=== PATIENT | female | born 1965 | race Caucasian/White ===

== ENCOUNTER → 2017-09-27 15:55 | Outpatient (CLI) | payer OTHER, SELFPAY ==
[2017-09-27 16:59] LABS: Estradiol 29.4 pg/mL; Free T3 1.9 pg/mL (2.18-3.98); Thyroid Stim Hormone (TSH) 0.36 uIU/mL (0.358-3.74)
== END ==
PROVIDERS: Family Provider Internal Medicine; PCP Internal Medicine; Visit Provider Specialist
DX: E02 Subclinical iodine-deficiency hypothyroidism (principal); N95.1 Menopausal and female climacteric states
CPT/HCPCS: 36415; 82670; 84144; 84403; 84443; 84481

== ENCOUNTER → 2017-12-30 06:46 | Outpatient (CLI) | payer OTHER, SELFPAY ==
--- NOTE | 2017-12-30 06:49 | CT_ITS ---
STUDY: CT MAXILLOFACIAL SINUSES REASON FOR EXAM: Female, 52 years old. Sinusitis RADIATION DOSAGE (If Supplied By Facility): CTDIvol = ( 33.06 ) mGy, DLP = ( 871.04 ) mGycm TECHNIQUE: The patient was scanned in a multi detector CT scanner. High resolution axial imaging was performed without the administration of intravenous contrast material. Coronal images were reconstructed. Streak artifact caused by dental hardware. Individualized dose optimization techniques were used for this CT. COMPARISON: None. FINDINGS: FRONTAL SINUSES: Normal aeration, without mucosal inflammatory disease. ETHMOIDAL SINUSES: Normal aeration, without mucosal inflammatory disease. MAXILLARY SINUSES: Normal aeration, without mucosal inflammatory disease. SPHENOIDAL SINUSES: Normal aeration, without mucosal inflammatory disease. There is patency of the bilateral maxillary infundibuli with normal uncinate processes, ethmoid bullae, and hiatus semilunaris. Normal bilateral middle turbinates. Normal bilateral inferior turbinates. There is a left sided nasal septal deviation with a left sided nasal septal spur. There is patency of the bilateral nasal airways. The visualized osseous structures are normal. The visualized bilateral orbital contents are normal. The mandible and bilateral temporomandibular joints are intact. The bilateral mastoid air cells are clear. CT/Sinus/Facial Bone IMPRESSION: No evidence of acute or chronic sinusitis or mastoiditis. Left septal deviation with a left sided nasal septal spur. Electronically Signed: Bertha Littlejohn MD at 6:34 EDT , Service support ,
== END ==
PROVIDERS: Family Provider Internal Medicine; PCP Internal Medicine; Visit Provider Otolaryngology
DX: J32.9 Chronic sinusitis, unspecified (principal); J34.2 Deviated nasal septum; J34.89 Other specified disorders of nose and nasal sinuses
CPT/HCPCS: 70486

== ENCOUNTER → 2018-02-27 16:48 | Outpatient (CLI) | payer OTHER, SELFPAY ==
[2015-05-28 10:21] VITALS: BMI 21.4
[2018-02-27 17:30] LABS: Color, Urine Yellow (Yellow); Glucose, Dipstick Normal (Normal); Ketone-Dipstick Negative (Negative); Leukocyte Esterase-Dipstick 500 /ul (Negative); Nitrite-Dipstick Negative (Negative); Occult Blood-Urine 10 /ul (Negative); Protein-Dipstick Negative (Negative); Specific Gravity, Urine 1.005 (1.002-1.030); Urine Bilirubin Dipstick Negative (Negative); Urine Clarity Sl. Cloudy (Clear); Urine Urobilinogen Normal (Normal)
[2018-02-27 17:57] LABS: Absolute Lymphocyte Count 2.48 X10^3/ul (0.83-4.51); Basophil# 0.03 X10^3/uL; Basophil% 0.4 % (0-1); Eosinophil# 0.19 X10^3/uL; Eosinophils% 2.6 % (0-5); Hematocrit 45.9 % (37-47); Hemoglobin 15.4 g/dl (12.0-15.0); Lymphocyte # 2.48 X10^3/ul (4.0); Lymphocyte % 33.9 % (19-41); Mean Corp Hgb Conc 33.6 g/gl (32-36); Mean Corpuscular Hgb 34.1 pg (27.0-32.0); Mean Corpuscular Volume 101.8 fL (81-99); Mean Platelet Vol. 11.6 fl (6.2-12.0); Monocyte# 0.61 X10^3/uL; Monocyte% 8.3 % (0-10); Neutrophil % 54.7 % (47-70); Platelet Count 249 K/mm3 (150-450); RBC Distribution Width CV 12.5 % (11.6-14.6); Red Blood Count 4.51 M/mm3 (4.2-5.4); White Blood Count 7.3 K/mm3 (4.4-11.0)
[2018-02-27 17:58] LABS: POSITIVE COUNT NO; POSITIVE DIFFERENTIAL NO; POSITIVE MORPHOLOGY NO
[2018-02-27 18:02] LABS: ALB/GLOB Ratio 1.1 RATIO (0.9-2.4); AST(SGOT) 17 U/L (15-37); Alanine Aminotransfer ALT/SGPT 31 U/L (13-56); Albumin, Serum 4.1 g/dL (3.2-5.0); Alkaline Phosphatase 77 U/L (45-117); Anion Gap 5 (5-15); BUN 16 mg/dL (7-18); BUN/Creat Ratio 15.5 RATIO (10-20); Calcium,Total 8.9 mg/dL (8.5-10.1); Chloride 106 mmol/L (98-107); Creatinine, Serum 1.03 mg/dL (0.55-1.02); EST Glomerular Filtration Rate 60 mL/min (>60); Est Glom Filt Rate - Afr Amer 72 mL/min (>60); Free T3 2.5 pg/mL (2.18-3.98); Globulin 3.7 g/dL (2.2-4.2); Glucose 87 mg/dL (74-106); Protein, Total 7.8 g/dL (6.4-8.2); Sodium Level 138 mmol/L (136-145); T4 Free Direct 0.75 ng/dL (0.76-1.46); Thyroid Stim Hormone (TSH) 2.18 uIU/mL (0.358-3.74)
== END ==
PROVIDERS: Family Provider Internal Medicine; PCP Internal Medicine; Referring Provider Nurse Practitioner; Visit Provider Nurse Practitioner
DX: R00.2 Palpitations (principal); R74.8 Abnormal levels of other serum enzymes
CPT/HCPCS: 36415; 80053; 81002; 82248; 84439; 84443; 84481; 85025

== ENCOUNTER → 2018-03-03 06:47 | Outpatient (CLI) | payer OTHER, SELFPAY ==
--- NOTE | 2018-03-03 06:51 | CT_ITS ---
STUDY: CT BRAIN WITHOUT CONTRAST REASON FOR EXAM: Female, 52 years old. Headaches. RADIATION DOSAGE (If Supplied By Facility): CTDIvol = ( 44.99 ) mGy, DLP = ( 745.49 ) mGycm TECHNIQUE: Transaxial CT imaging of the brain was performed without administration of intravenous contrast material. Individualized dose optimization techniques were used for this CT. COMPARISON: Comparison is made with prior study dated May 28, 2015. FINDINGS: Normal soft tissue structures. Normal calvarium. Normal size ventricles and extra-axial spaces for the patient's age. Normal white matter tracts of the cerebral hemispheres. Normal basal ganglia and thalami. Normal brainstem. Normal cerebellum. There is no intracranial hemorrhage. There are no findings of an acute ischemic infarction. Minimal degree of mucosal thickening of the ethmoid sinuses. CT/Brain/Head without Contrast IMPRESSION: Normal unenhanced CT scan of the brain. Minimal degree of mucosal thickening of the ethmoid sinuses. Electronically Signed: Aki Cruz MD at 10:14 EST Tel [phone], Service support ,
== END ==
PROVIDERS: Family Provider Internal Medicine; PCP Internal Medicine; Referring Provider Nurse Practitioner; Visit Provider Nurse Practitioner
DX: R51 Headache (principal); R00.2 Palpitations
CPT/HCPCS: 70450

== ENCOUNTER → 2018-03-06 11:02 | Outpatient (CLI) | payer OTHER, SELFPAY ==
[2015-05-28 10:21] VITALS: BMI 21.4
--- NOTE | 2018-03-06 11:06 | ECHOD_ITS ---
Reason For Study: Palpitations Procedure This was a 2D Doppler, Color Flow transthoracic echocardiogram. Exam performed in department. Left Ventricle Normal LV size. Left ventricular systolic function is normal. The estimated ejection fraction is 55 %. Normal diastology for age. No regional wall motion abnormalities noted. Right Ventricle Normal RV size. Normal systolic function. Atria Normal left atrium. Normal right atrium. Mitral Valve Normal mitral valve. Tricuspid Valve Normal tricuspid valve. Aortic Valve Trisinus/trileaflet aortic valve. Pulmonic Valve Normal pulmonic valve. Great Vessels Normal aortic root. The pulmonary artery is normal size. Normal inferior vena cava. Pericardium/Pleural No pericardial effusion. MMode/2D Measurements & Calculations LVIDd: 4.8 cm IVSd: 0.88 cm Ao root diam: 3.3 cm LVIDs: 2.6 cm LVPWd: 0.89 cm LA dimension: 3.0 cm RVDd: 2.5 cm FS: 46.0 % LAV(MOD-sp4): 39.5 ml LVAd ap4: 24.4 cm2 SV(MOD-sp4): 47.2 ml EDV(MOD-sp4): 74.9 ml EDV(sp4-el): 78.4 ml LVAs ap4: 13.1 cm2 ESV(MOD-sp4): 27.7 ml ESV(sp4-el): 28.1 ml EF(MOD-sp4): 63.0 % EF(sp4-el): 64.2 % SV(sp4-el): 50.3 ml LA A4 area: 14.7 cm2 RA A4 area: 14.9 cm2 Time Measurements MV dec time: 0.22 sec Doppler Measurements & Calculations MV E max waqar: 83.4 cm/sec Lat Peak E' Waqar: 17.0 cm/sec Med Peak E' Waqar: 11.4 cm/sec MV A max waqar: 57.8 cm/sec E/E' lat: 4.9 E/E' med: 7.3 MV E/A: 1.4 MV V2 max: 106.9 cm/sec Ao V2 max: 143.5 cm/sec LV V1 max: 103.3 cm/sec MV max P.6 mmHg Ao max P.2 mmHg LV V1 max P.3 mmHg MV V2 mean: 53.5 cm/sec Ao V2 mean: 99.7 cm/sec LV V1 mean P.9 mmHg MV mean P.4 mmHg Ao mean P.3 mmHg LV V1 mean: 63.5 cm/sec MV V2 VTI: 28.2 cm Ao V2 VTI: 31.5 cm LV V1 VTI: 21.2 cm PA V2 max: 92.5 cm/sec Interpretation Summary Normal LV size. Left ventricular systolic function is normal. The estimated ejection fraction is 55 %. Normal diastology for age. Structurally normal valves. Ordering Physician: Cayla Chase Referring Physician: Cayla Chase Performed By: Js Fay RCS
== END ==
PROVIDERS: Family Provider Internal Medicine; PCP Internal Medicine; Referring Provider Nurse Practitioner; Visit Provider Nurse Practitioner
DX: R00.2 Palpitations (principal)
CPT/HCPCS: 93306

== ENCOUNTER → 2018-03-07 08:33 | Outpatient (CLI) | payer OTHER, SELFPAY ==
[2015-05-28 10:21] VITALS: BMI 21.4
== END ==
PROVIDERS: Family Provider Internal Medicine; PCP Internal Medicine; Referring Provider Nurse Practitioner; Visit Provider Nurse Practitioner
DX: R00.2 Palpitations (principal)
CPT/HCPCS: 93225; 93226

== ENCOUNTER → 2018-03-22 15:18 | Outpatient (CLI) | payer OTHER, SELFPAY ==
[2015-05-28 10:21] VITALS: BMI 21.4
[2018-03-22 19:06] LABS: Estradiol 51.1 pg/mL; Free T3 2.9 pg/mL (2.18-3.98); T4 Free Direct 0.91 ng/dL (0.76-1.46); Thyroid Stim Hormone (TSH) 1.43 uIU/mL (0.358-3.74)
== END ==
PROVIDERS: Family Provider Internal Medicine; PCP Internal Medicine; Referring Provider Specialist; Visit Provider Specialist
DX: E03.8 Other specified hypothyroidism (principal); N95.1 Menopausal and female climacteric states
CPT/HCPCS: 36415; 82670; 84144; 84403; 84439; 84443; 84481

== ENCOUNTER 2018-05-08 15:22 | Outpatient (RCR) | payer OTHER, SELFPAY ==
--- NOTE | 2018-05-08 16:08 | HP.PTEVAL_ITS ---
Patient's Visit Information GÓMEZ THURMAN is a 52 year old F referred to Physical Therapy by TAIWO Zacarias with a diagnosis of BPPV. Date of Evaluation: 05/08/18 Physical Therapist: Jermaine Mc, JUDYT, OCS, CSCS - Visit Plan Frequency: 1-2x /Week Duration: 2-4 Weeks Plan: 1-2x/week as needed. Treated with R gracy today. Willc heck this in 3-7 days and retreat as needed. - Subjective Findings: Vertigo, gets diizzy. Woke up April 12 with vertigo and has not gone away. Rolled to R on that day and lasted short duration. Was bad for 5-7 days. Had it in November of 2017 also and it went awy in 5 days. Saw ENT at that time and hearing was fine and no Mienierres. Was a problem rolling on R side. Now if she lies on back and turns head R she spins. Washing hair in am can be a problem but not much anymore. Holding a plank with stop watch in front of her can be a problem. Burpees and hopping R made her spin. Can't put head all the way down in ab exercises. 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 Has to be careful on steps. Will go on vacation to [facility] and worried about plane trip. - Objective Walks [facility] without incident. c/s aROM WFL and without pain today. Balance is good. - L hallpike anand. + R hallpike for delayed onset 7 second up torsional nystagmus. Treated with R gracy and then - hallpike. - Balance Scores Functional Gait Assessment Score: 30 % Disability: 0 CATSIB Score (Max score 120 seconds): 120 - Goals Goal 1:: abolish vertigo in bed. Goal Time Frame: 2-4 Weeks Goal 2:: Back to 100% workouts without incidence Goal Time Frame: 2-4 Weeks - Rehabilitation Potential Physical Therapy Diagnosis: R post canal BPPV Rehabilitation Potential: Fair - Anticipated Interventions Patient/Client Instruction: Educate patient on: Condition, Plan of Care Other: to abolish dizzyness Comment: positional treatments and ex For the Purpose of:: To increase tolerance to activity/condition/position Thank you for the opportunity to evaluate your patient. For Medicare and Medicare HMO plans, please review the plan of care and approve it. It will need to be FAXED BACK to us at [phone] for Medicare purposes. For Medicare only, by signing this I certify the plan of care. Please let me know if there are questions or concerns regarding this plan of care. Physician Signature: Date:
--- NOTE | 2018-06-15 11:03 | HP.PT.NRP ---
HP - Discharge Summary (1) - Patient Information GÓMEZ THURMAN was seen in my office for initial evaluation on 05/08/18. The following Plan of Care was established for this patient: Initial Frequency: 1-2x /Week Initial Duration: 2-4 Weeks - Anticipated Interventions Patient/Client Instruction: Educate patient on: Condition, Plan of Care Other: to abolish dizzyness For the Purpose of:: To increase tolerance to activity/condition/position This patient was last seen in our office 05/08/18. Pertinent comments regarding their Physical therapy will appear below: Pt seen one visit for positional treatments and POC established for 2-4 weeks. Pt neglected to schedule or attend any further visits. I will discontinue due to nonattendance as it has been over 4 weeks. At this point I will be discontinuing this patient from physical therapy. I would be happy to see this patient again in the future if found appropriate by the physician. Thank you! Jermaine Mc, DPT, OCS, CSCS
== END 2018-05-08 19:00 | disposition home or self-care (01) ==
LOC: PT 15:22
PROVIDERS: Family Provider Internal Medicine; PCP Internal Medicine; Referring Provider Nurse Practitioner Gerontology; Visit Provider Nurse Practitioner Gerontology
DX: H81.10 Benign paroxysmal vertigo, unspecified ear (principal)
CPT/HCPCS: 97161

== ENCOUNTER → 2018-06-23 15:49 | Outpatient (CLI) | payer OTHER, SELFPAY ==
[2015-05-28 10:21] VITALS: BMI 21.4
[2018-06-23 16:47] LABS: Estradiol 44.5 pg/mL; Free T3 3.1 pg/mL (2.18-3.98); Progesterone Level 13.33 ng/mL (See Comment); T4 Free Direct 1.09 ng/dL (0.76-1.46); Thyroid Stim Hormone (TSH) 0.06 uIU/mL (0.358-3.74)
[2018-06-26 11:22] LABS: DHEA Sulfate 265.5 ug/dL (41.2-243.7)
== END ==
PROVIDERS: Family Provider Internal Medicine; PCP Internal Medicine; Referring Provider Specialist; Visit Provider Specialist
DX: E03.9 Hypothyroidism, unspecified (principal); N95.1 Menopausal and female climacteric states; R53.83 Other fatigue
CPT/HCPCS: 36415; 82627; 82670; 84144; 84403; 84439; 84443; 84481; 82626

== ENCOUNTER 2018-07-28 12:10 | Outpatient (RCR) | payer OTHER, SELFPAY ==
--- NOTE | 2018-08-08 10:18 | HP.PT.NRP ---
HP - Discharge Summary (1) - Patient Information GÓMEZ THURMAN was seen in my office for initial evaluation on 07/28/18. The following Plan of Care was established for this patient: Initial Frequency: 1x/Week Initial Duration: 3 Weeks - Anticipated Interventions Patient/Client Instruction: Educate patient on: Condition, Plan of Care For the Purpose of:: To improve ability to perform ADL's, To increase tolerance to activity/condition/position, To improve performance and independence with ADL's Therapeutic Exercise to Include: Balance training, Gait and locomotor training For the Purpose of:: To improve ability to perform ADL's, To improve ability of physical actions for home/community/work/leisure, To improve gait and locomotor functions This patient was last seen in our office 07/29/18. Pertinent comments regarding their Physical therapy will appear below: DC PT. Pt called in and said that the treatment worked and that she feels much better and does not need to continue. DC PT. At this point I will be discontinuing this patient from physical therapy. I would be happy to see this patient again in the future if found appropriate by the physician. Thank you! Jessa Valverde, MPT
== END 2018-07-28 19:00 | disposition home or self-care (01) ==
LOC: PT 12:10
PROVIDERS: Family Provider Internal Medicine; PCP Internal Medicine; Referring Provider Nurse Practitioner; Visit Provider Nurse Practitioner
DX: H81.10 Benign paroxysmal vertigo, unspecified ear (principal)
CPT/HCPCS: 97161

== ENCOUNTER → 2018-10-16 15:51 | Outpatient (CLI) | payer OTHER, SELFPAY ==
[2015-05-28 10:21] VITALS: BMI 21.4
[2018-10-16 16:58] LABS: Estradiol 23.4 pg/mL; Free T3 2.9 pg/mL (2.18-3.98); T4 Free Direct 0.82 ng/dL (0.76-1.46); Thyroid Stim Hormone (TSH) 0.15 uIU/mL (0.358-3.74)
[2018-10-16 17:18] LABS: Progesterone Level 6.38 ng/mL (See Comment)
[2018-10-18 12:57] LABS: DHEA Sulfate 189.7 ug/dL (41.2-243.7)
== END ==
PROVIDERS: Family Provider Internal Medicine; PCP Internal Medicine; Referring Provider Obstetrics & Gynecology; Visit Provider Obstetrics & Gynecology
DX: N95.1 Menopausal and female climacteric states (principal); E03.8 Other specified hypothyroidism
CPT/HCPCS: 36415; 82627; 82670; 84144; 84403; 84439; 84443; 84481; 82626

== ENCOUNTER → 2019-04-05 15:10 | Outpatient (CLI) | payer OTHER, SELFPAY ==
--- NOTE | 2019-04-05 15:12 | BI_ITS ---
MAMMOGRAPHY - BILATERAL SCREENING 3-D TOMOSYNTHESIS REASON FOR EXAM: Female, 53 years old. Routine annual screening mammogram. PERTINENT HISTORY: Family history of breast cancer in sister at age 42. TECHNIQUE: 2-D mammograms and 3-D Tomosynthesis of the breast (s) were performed. CAD was performed. COMPARISON: May 04, 2016, March 11, 2015 FINDINGS: The breast composition is heterogeneously dense that can obscure small breast masses. Stable multiple low-density partially obscured masses bilaterally compatible with cysts. Scattered benign calcifications are seen. No dense spiculated masses or suspicious microcalcifications are identified. No architectural distortion is identified. There is no skin thickening or retraction. There has been no significant change since the prior study. BI/SCREEN MAMM (CAD) W/AZALIA BILAT IMPRESSION: No mammographic signs of malignancy. Routine yearly mammograms recommended. ASSESSMENT CATEGORY: BIRADS Category 2: Benign. A letter regarding these results will be sent to the patient by the facility within 30 days. FOLLOW UP RECOMMENDATION: Yearly follow up mammogram recommended. (A) Approximately 10% of breast cancers are not detected by mammography. A normal mammogram should not delay biopsy of a clinically suspicious abnormality. Electronically Signed: Jose Mccann MD at 17:50 EST , Service support ,
--- NOTE | 2019-04-05 15:20 | BD_ITS ---
STUDY: DUAL ENERGY X-RAY ABSORPTIOMETRY / DXA REASON FOR EXAM: Female, 53 years old. 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 COMPARISON: None. FINDINGS: Lumbar Spine (L1-L4): g/cm2 (0.953) / T-score (-1.9) / Z-score (-1.2) Findings are suggestive of normal bone density with a moderate fracture risk. Left Femur Total: g/cm2 (0.768) / T-score (-1.9) / Z-score (-1.3) Left Femoral Neck: g/cm2 (0.759) / T-score (-2.0) / Z-score (-1.1) Right Femur Total: g/cm2 (0.775) / T-score (-1.8) / Z-score (-1.3) Right Femoral Neck: g/cm2 (0.750) / T-score (-2.1) / Z-score (-1.1) BD/Dexa Bone Density Study IMPRESSION: The patient is considered osteopenic as outlined below according to World Severo Organization (WHO) criteria with a moderate fracture risk. Reference Information: The T-score is the number of standard deviations above or below the standard which is normal for young adults at their peak bone mineral density. The World Health Organization (WHO) interprets the T-scores as follows: Above -1 Normal bone density Between -1 and -2.5 Osteopenia Equal to / or below -2.5 Osteoporosis As a practical clinical guideline, osteopenia may be graded as follows: Mild -1 through -1.5 Moderate -1.6 through -2.0 Severe -2.1 through -2.4 The Z-score is the number of standard deviations above or below age-matched controls. A Z-score of less than -1.5 would be considered abnormal. References: 1. NIH Osteoporosis and Related Bone Diseases http://www.osteo.org 2. International Society for Clinical Densitometry http://www.iscd.org 3. National Osteoporosis Foundation http://www.nof.org Electronically Signed: Aki Cruz, at 9:11 EST , Service support ,
== END ==
PROVIDERS: Family Provider Internal Medicine; PCP Internal Medicine; Referring Provider Obstetrics & Gynecology; Visit Provider Obstetrics & Gynecology
DX: Z12.31 Encounter for screening mammogram for malignant neoplasm of breast (principal); M85.89 Other specified disorders of bone density and structure, multiple sites
CPT/HCPCS: 77063; 77067; 77080

== ENCOUNTER → 2019-07-09 15:23 | Outpatient (CLI) | payer OTHER, SELFPAY ==
[2015-05-28 10:21] VITALS: BMI 21.4
[2019-07-09 17:38] LABS: Progesterone Level 2.13 ng/mL (See Comment)
[2019-07-09 17:40] LABS: Estradiol 25.2 pg/mL; Free T3 2.7 pg/mL (2.18-3.98)
[2019-07-11 06:42] LABS: DHEA Sulfate 142.1 ug/dL (41.2-243.7)
== END ==
PROVIDERS: PCP Internal Medicine; Referring Provider Specialist; Visit Provider Specialist
DX: N95.1 Menopausal and female climacteric states (principal); E03.8 Other specified hypothyroidism
CPT/HCPCS: 36415; 82627; 82670; 84144; 84403; 84481; 82626

== ENCOUNTER → 2019-12-28 15:02 | Outpatient (CLI) | payer OTHER, SELFPAY ==
[2015-05-28 10:21] VITALS: BMI 21.4
[2019-12-28 18:07] LABS: Progesterone Level 6.32 ng/mL (See Comment)
[2019-12-28 18:09] LABS: Estradiol 23.7 pg/mL; Free T3 2.5 pg/mL (2.18-3.98)
== END ==
PROVIDERS: PCP Internal Medicine; Referring Provider Specialist; Visit Provider Specialist
DX: E03.9 Hypothyroidism, unspecified (principal); N95.1 Menopausal and female climacteric states
CPT/HCPCS: 36415; 82670; 84144; 84403; 84481

== ENCOUNTER → 2020-02-28 08:07 | Outpatient (CLI) | payer OTHER, SELFPAY ==
[2015-05-28 10:21] VITALS: BMI 21.4
[2020-02-28 09:55] LABS: Absolute Neutrophil Count 2.2 X10^3/uL (2.0-7.7); Basophil# 0.04 X10^3/uL; Basophil% 0.8 % (0-1); Eosinophil# 0.22 X10^3/uL; Eosinophils% 4.5 % (0-5); Hematocrit 44.9 % (37-47); Hemoglobin 14.3 g/dL (12.0-15.0); Lymphocyte % 39.2 % (19-41); Mean Corp Hgb Conc 31.8 g/dL (32-36); Mean Corpuscular Hgb 33.1 pg (27.0-32.0); Mean Corpuscular Volume 103.9 fL (81-99); Mean Platelet Vol. 11.5 fl (6.2-12.0); Monocyte# 0.47 X10^3/uL; Monocyte% 9.7 % (0-10); NRBC Flagged by Analyzer 0 % (0-5); Neutrophil # 2.22 X10^3/uL (2.7-7.7); Neutrophil % 45.8 % (47-70); Platelet Count 186 K/mm3 (150-450); RBC Distribution Width CV 12.2 % (11.6-14.6); RBC Distribution Width SD 47.3 fl (35.1-43.9); Red Blood Count 4.32 M/mm3 (4.2-5.4); White Blood Count 4.9 K/mm3 (4.4-11.0)
[2020-02-28 10:30] LABS: Cholesterol 173 mg/dL (200); High Density Lipoprotein 69 mg/dL; Thyroid Stim Hormone (TSH) 1.17 uIU/mL (0.358-3.74); Triglycerides 59 mg/dL; Very Low Density Lipoprotein 12 mg/dL (5-40)
== END ==
PROVIDERS: PCP Internal Medicine; Referring Provider Nurse Practitioner; Visit Provider Nurse Practitioner
DX: R53.83 Other fatigue (principal); Z13.220 Encounter for screening for lipoid disorders; Z13.29 Encounter for screening for other suspected endocrine disorder; Z13.0 Encounter for screening for diseases of the blood and blood-forming organs and certain disorders involving the immune mechanism
CPT/HCPCS: 36415; 80061; 84443; 85025

== ENCOUNTER → 2020-04-24 15:53 | Outpatient (CLI) | payer OTHER, SELFPAY ==
[2020-04-24 18:52] LABS: Progesterone Level 4.71 ng/mL (See Comment)
[2020-04-24 19:58] LABS: Estradiol < 11.0 pg/mL; Free T3 2.8 pg/mL (2.18-3.98)
== END ==
PROVIDERS: PCP Internal Medicine; Referring Provider Specialist; Visit Provider Specialist
DX: E03.9 Hypothyroidism, unspecified (principal); E27.9 Disorder of adrenal gland, unspecified; N95.1 Menopausal and female climacteric states
CPT/HCPCS: 36415; 82627; 82670; 84144; 84403; 84481; 82626

== ENCOUNTER → 2020-08-22 15:36 | Outpatient (CLI) | payer OTHER, SELFPAY ==
--- NOTE | 2020-08-22 15:38 | BI_ITS ---
MAMMOGRAPHY - BILATERAL SCREENING 3-D TOMOSYNTHESIS REASON FOR EXAM: Female, 55 years old. Routine screening PERTINENT HISTORY: Sister with breast cancer.. TECHNIQUE: 2-D mammograms and 3-D Tomosynthesis of the breast (s) were performed. CAD was performed. COMPARISON: 04/05/2019 FINDINGS: The breast composition is heterogeneously dense that can obscure small breast masses. Scattered benign calcifications are seen. No dense spiculated masses or suspicious microcalcifications are identified. No architectural distortion is identified. There is no skin thickening or retraction. There has been no significant change since the prior study. BI/SCRN MAMM (CAD)W/AZALIA BILAT IMPRESSION: No mammographic signs of malignancy. Routine yearly mammograms recommended. ASSESSMENT CATEGORY: BIRADS Category 2: Benign. A letter regarding these results will be sent to the patient by the facility within 30 days. FOLLOW UP RECOMMENDATION: Yearly follow up mammogram recommended. (A) Approximately 10% of breast cancers are not detected by mammography. A normal mammogram should not delay biopsy of a clinically suspicious abnormality. Electronically Signed: Ming Huertas MD at 9:10 EDT , Service support ,
== END ==
PROVIDERS: PCP Internal Medicine; Referring Provider Specialist; Visit Provider Specialist
DX: Z12.31 Encounter for screening mammogram for malignant neoplasm of breast (principal)
CPT/HCPCS: 77063; 77067

== ENCOUNTER → 2020-10-24 15:30 | Outpatient (CLI) | payer OTHER, SELFPAY ==
[2015-05-28 10:21] VITALS: BMI 21.4
[2020-10-24 19:25] LABS: Estradiol < 11.0 pg/mL
[2020-10-27 07:50] LABS: Progesterone Level 7.19 ng/mL (See Comment)
== END ==
PROVIDERS: PCP Internal Medicine; Referring Provider Specialist; Visit Provider Specialist
DX: E03.9 Hypothyroidism, unspecified (principal); E27.9 Disorder of adrenal gland, unspecified; N95.1 Menopausal and female climacteric states
CPT/HCPCS: 36415; 82627; 82670; 84144; 84403; 84481; 82626

== ENCOUNTER 2021-05-01 14:43 | Outpatient (CLI) | payer OTHER, SELFPAY ==
[2021-05-01 17:43] LABS: Progesterone Level 7.16 ng/mL (See Comment)
[2021-05-01 17:56] LABS: Free T3 1.7 pg/mL (2.18-3.98); Thyroid Stim Hormone (TSH) 1.29 uIU/mL (0.358-3.74)
== END 2021-05-01 23:59 | disposition short-term general hospital (02) ==
PROVIDERS: PCP Internal Medicine; Referring Provider Specialist; Visit Provider Specialist
DX: E03.8 Other specified hypothyroidism (principal); N95.1 Menopausal and female climacteric states
CPT/HCPCS: 36415; 82670; 84144; 84403; 84443; 84481

== ENCOUNTER → 2021-08-31 | Outpatient (CLI) | payer OTHER, SELFPAY ==
[2021-08-31 16:55] LABS: Estradiol 28.8 pg/mL; Free T3 2.7 pg/mL (2.18-3.98); Thyroid Stim Hormone (TSH) 0.41 uIU/mL (0.358-3.74)
[2021-08-31 16:58] LABS: Progesterone Level 8.43 ng/mL (See Comment)
== END | disposition home or self-care (01) ==
LOC: LAB 15:48
PROVIDERS: PCP Internal Medicine; Referring Provider Nurse Practitioner Women's Health; Visit Provider Nurse Practitioner Women's Health
DX: E03.8 Other specified hypothyroidism (principal); N95.1 Menopausal and female climacteric states; R53.81 Other malaise
CPT/HCPCS: 36415; 82627; 82670; 84144; 84403; 84443; 84481; 82626

== ENCOUNTER → 2022-01-28 | Outpatient (CLI) | payer OTHER, SELFPAY ==
--- NOTE | 2022-01-28 15:50 | BD_ITS ---
STUDY: DUAL ENERGY X-RAY ABSORPTIOMETRY / DXA REASON FOR EXAM: Female, 56 years old. M85.89 TECHNIQUE: Bone Mineral Density (BMD) measurements of unilateral hip (right) were obtained. COMPARISON: Comparison is made with prior study dated 04/05/2019. FINDINGS: Lumbar Spine (L1-L4): g/cm2 (0.795) / T-score (-2.3) / Z-score (-1.1) Findings are suggestive of osteopenia with a high fracture risk. Right Femur Total: g/cm2 (0.740) / T-score (-1.7) / Z-score (-0.9) Right Femoral Neck: g/cm2 (0.552) / T-score (-2.7) / Z-score (-1.6) The T-Scores on the most recent prior examination were: Lumbar Spine (L1-L4): There has been worsening of bone density since the previous examination. Right Femur Total: which represents an improvement of 3.4%. BD/Dexa Bone Density Study IMPRESSION: The patient is considered osteoporotic as outlined below according to World Severo Organization (WHO) criteria with a high fracture risk. There has been worsening of bone density since the previous examination. Reference Information: The T-score is the number of standard deviations above or below the standard which is normal for young adults at their peak bone mineral density. The World Health Organization (WHO) interprets the T-scores as follows: Above -1 Normal bone density Between -1 and -2.5 Osteopenia Equal to / or below -2.5 Osteoporosis As a practical clinical guideline, osteopenia may be graded as follows: Mild -1 through -1.5 Moderate -1.6 through -2.0 Severe -2.1 through -2.4 The Z-score is the number of standard deviations above or below age-matched controls. A Z-score of less than -1.5 would be considered abnormal. References: 1. NIH Osteoporosis and Related Bone Diseases www osteo.org 2. International Society for Clinical Densitometry www iscd.org 3. National Osteoporosis Foundation www nof.org Electronically Signed: Aki Cruz MD at 13:59 EDT ,
--- NOTE | 2022-01-28 15:52 | BI_ITS ---
MAMMOGRAPHY - BILATERAL SCREENING 3-D TOMOSYNTHESIS REASON FOR EXAM: Female, 56 years old. Routine screening PERTINENT HISTORY: Sister with breast cancer.. TECHNIQUE: 2-D mammograms and 3-D Tomosynthesis of the breast (s) were performed. CAD was performed. COMPARISON: 08/22/2020 FINDINGS: The breast composition is heterogeneously dense that can obscure small breast masses. Scattered benign calcifications are seen. No dense spiculated masses or suspicious microcalcifications are identified. No architectural distortion is identified. There is no skin thickening or retraction. Stable well-defined noncalcified nodules in both breasts. There has been no significant change since the prior study. BI/SCRN MAMM (CAD)W/AZALIA BILAT IMPRESSION: No mammographic signs of malignancy. Routine yearly mammograms recommended. ASSESSMENT CATEGORY: BIRADS Category 2: Benign. A letter regarding these results will be sent to the patient by the facility within 30 days. FOLLOW UP RECOMMENDATION: Yearly follow up mammogram recommended. (A) Approximately 10% of breast cancers are not detected by mammography. A normal mammogram should not delay biopsy of a clinically suspicious abnormality. Electronically Signed: Ming Huertas MD at 7:54 EDT ,
== END | disposition home or self-care (01) ==
PROVIDERS: PCP Internal Medicine
DX: M85.89 Other specified disorders of bone density and structure, multiple sites (principal); Z12.31 Encounter for screening mammogram for malignant neoplasm of breast
CPT/HCPCS: 77063; 77067; 77080

== ENCOUNTER → 2022-02-12 | Outpatient (CLI) | payer OTHER, SELFPAY ==
[2022-02-12 17:16] LABS: Progesterone Level 8.86 ng/mL (See Comment)
[2022-02-12 17:20] LABS: Estradiol 56.2 pg/mL; Free T3 2.7 pg/mL (2.18-3.98)
== END | disposition home or self-care (01) ==
LOC: LAB 15:26
PROVIDERS: PCP Internal Medicine; Visit Provider Nurse Practitioner Women's Health
DX: E03.8 Other specified hypothyroidism (principal); N95.1 Menopausal and female climacteric states; R53.81 Other malaise
CPT/HCPCS: 36415; 82627; 82670; 84144; 84403; 84443; 84481; 82626

== ENCOUNTER → 2022-08-10 | Outpatient (CLI) | payer OTHER, SELFPAY ==
[2022-08-10 18:32] LABS: Progesterone Level 7.72 ng/mL (See Comment); Vitamin D,25 Hydroxy 58.8 ng/mL
[2022-08-10 18:38] LABS: Estradiol 30.9 pg/mL; Free T3 2.8 pg/mL (2.18-3.98); Thyroid Stim Hormone (TSH) 0.45 uIU/mL (0.358-3.74)
== END | disposition home or self-care (01) ==
LOC: MTLAB 14:18
PROVIDERS: PCP Internal Medicine; Referring Provider Nurse Practitioner Women's Health; Visit Provider Nurse Practitioner Women's Health
DX: N95.1 Menopausal and female climacteric states (principal); E03.8 Other specified hypothyroidism; R53.81 Other malaise; E55.9 Vitamin D deficiency, unspecified
CPT/HCPCS: 36415; 82306; 82627; 82670; 84144; 84403; 84443; 84481; 82626

== ENCOUNTER → 2022-11-05 | Outpatient (CLI) | payer OTHER, SELFPAY ==
[2022-11-05 17:54] LABS: AST(SGOT) 19 U/L (15-37); Alanine Aminotransfer ALT/SGPT 24 U/L (13-56); Albumin, Serum 3.7 g/dL (3.2-5.0); Alkaline Phosphatase 61 U/L (45-117); Protein, Total 6.7 g/dL (6.4-8.2)
[2022-11-08 09:07] LABS: QNTFERON TB Mitogen Value > 10.00 IU/mL (.); QNTFERON TB Nil Value 0.09 IU/mL (.); QNTFERON TB1+ Ag Value 0.08 IU/mL (.); QNTFERON TB2+ Ag Value 0.08 IU/mL (.); QNTIFERON TB Positive Criteria Negative (Negative)
== END | disposition home or self-care (01) ==
LOC: MTLAB 15:24
PROVIDERS: PCP Internal Medicine; Referring Provider Physician Assistant; Visit Provider Physician Assistant
DX: L40.0 Psoriasis vulgaris (principal); L71.8 Other rosacea; Z79.899 Other long term (current) drug therapy
CPT/HCPCS: 36415; 80076; 86480

== ENCOUNTER → 2023-02-23 | Outpatient (CLI) | payer OTHER, SELFPAY ==
[2023-02-23 18:18] LABS: Hepatitis B Surface Antibody Non-Reactive
[2023-02-23 18:20] LABS: Progesterone Level 8.21 ng/mL (See Comment); Vitamin D,25 Hydroxy 65.2 ng/mL
[2023-02-23 19:46] LABS: Estradiol 12.7 pg/mL; Free T3 2.9 pg/mL (2.18-3.98); Thyroid Stim Hormone (TSH) 0.42 uIU/mL (0.358-3.74)
[2023-02-25 06:08] LABS: HEPATITIS B SURFACE AG Negative (Negative); Hep C Antibodies Non Reactive (Non Reactive); Hepatitis A AB, Total Negative (Negative); Hepatitis A IgM Antibody Negative (Negative); Hepatitis B Core AB IgM Negative (Negative)
== END | disposition home or self-care (01) ==
PROVIDERS: Physician Assistant; PCP Internal Medicine; Referring Provider Nurse Practitioner Women's Health; Visit Provider Nurse Practitioner Women's Health
DX: L40.0 Psoriasis vulgaris (principal); L71.8 Other rosacea; Z79.899 Other long term (current) drug therapy
CPT/HCPCS: 36415; 80074; 82306; 82627; 82670; 84144; 84403; 84443; 84481; 86706; 86708; 82626

== ENCOUNTER → 2023-03-10 | Outpatient (CLI) | payer OTHER, SELFPAY ==
--- NOTE | 2023-03-10 16:09 | BI_ITS ---
MAMMOGRAPHY - BILATERAL SCREENING REASON FOR EXAM: Female, 57 years old. Routine annual screening examination. PERTINENT HISTORY: Sister with breast cancer. TECHNIQUE: Digital bilateral breast azalia (3D mammographic acquisition) in the CC and MLO projections. 2-D mediolateral oblique (MLO) and craniocaudad (CC) views of both breasts were obtained. CAD: Full Field Digital Mammography with Computer Added Detection was performed. COMPARISON: Comparison is made with prior study January 28, 2022 and August 22, 2020. FINDINGS: Breast Composition: The breasts are heterogeneously dense, which may obscure small masses. There are no dominant masses or suspicious calcifications. Stable partially calcified nodule measuring 1.1 cm x 0.9 cm in the retroareolar region of the left breast. Stable well-defined nodular densities in both breasts most likely representing cysts. No other significant abnormalities are identified. There has been no significant change since the prior study. BI/SCRN MAMM (CAD)W/AZALIA BILAT IMPRESSION: Stable bilateral screening mammogram. Yearly follow-up mammogram recommended. (A) ASSESSMENT CATEGORY: BIRADS Category 2: Benign. A letter regarding these results will be sent to the patient by the facility within 30 days. Approximately 10% of breast cancers are not detected by mammography. A normal mammogram should not delay biopsy of a clinically suspicious abnormality. [id number] Electronically Signed: Aki Cruz MD at 8:33 EST ,
== END | disposition home or self-care (01) ==
LOC: OPBI 16:08
PROVIDERS: PCP Internal Medicine; Referring Provider Nurse Practitioner Women's Health; Visit Provider Nurse Practitioner Women's Health
DX: Z12.31 Encounter for screening mammogram for malignant neoplasm of breast (principal)
CPT/HCPCS: 77063; 77067

== ENCOUNTER → 2023-08-27 | Outpatient (CLI) | payer OTHER, SELFPAY ==
[2023-08-27 12:25] LABS: Estradiol 27.1 pg/mL; Thyroid Stim Hormone (TSH) 0.35 uIU/mL (0.358-3.74)
[2023-08-28 08:07] LABS: DHEA Sulfate 92.4 ug/dL (29.4-220.5); PROGESTERONE 1.1 ng/mL (.)
[2023-08-29 09:24] LABS: Vitamin D,25 Hydroxy 53.9 ng/mL
== END | disposition home or self-care (01) ==
LOC: LAB 10:22
PROVIDERS: PCP Internal Medicine; Referring Provider Nurse Practitioner Women's Health; Visit Provider Nurse Practitioner Women's Health
DX: N95.1 Menopausal and female climacteric states (principal); E03.8 Other specified hypothyroidism; R53.81 Other malaise; E55.9 Vitamin D deficiency, unspecified
CPT/HCPCS: 36415; 82306; 82627; 82670; 84144; 84403; 84443; 84481; 82626

== ENCOUNTER → 2023-10-24 | Outpatient (CLI) | payer OTHER, SELFPAY ==
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
== END | disposition home or self-care (01) ==
LOC: MRI 17:09
PROVIDERS: PCP Internal Medicine; Referring Provider Nurse Practitioner Family; Visit Provider Nurse Practitioner Family
DX: G44.84 Primary exertional headache (principal)
CPT/HCPCS: 70544

== ENCOUNTER → 2023-11-25 | Outpatient (CLI) | payer OTHER, SELFPAY ==
[2023-11-25 18:01] LABS: Estradiol 26.7 pg/mL; Free T3 2.3 pg/mL (2.18-3.98); Thyroid Stim Hormone (TSH) 0.322 uIU/mL (0.358-3.740)
[2023-11-27 07:07] LABS: PROGESTERONE 0.6 ng/mL (.)
[2023-11-30 14:09] LABS: DHEA Sulfate 79.1 ug/dL (29.4-220.5); Testosterone, % Free 1.35 % (0.50-2.80); Testosterone, Free 0.07 ng/dL (0.10-0.85); Testosterone, Total 5 ng/dL (4-50)
== END | disposition home or self-care (01) ==
LOC: MTLAB 14:26
PROVIDERS: PCP Internal Medicine; Referring Provider Nurse Practitioner Women's Health; Visit Provider Nurse Practitioner Women's Health
DX: N95.1 Menopausal and female climacteric states (principal); E03.8 Other specified hypothyroidism; R53.81 Other malaise; E55.9 Vitamin D deficiency, unspecified
CPT/HCPCS: 36415; 82306; 82627; 82670; 84144; 84402; 84403; 84443; 84481; 82626

== ENCOUNTER → 2023-12-05 | Outpatient (CLI) | payer OTHER, SELFPAY ==
[2023-12-07 13:09] LABS: QNTFERON TB Mitogen Value > 10.00 IU/mL (.); QNTFERON TB Nil Value 0.05 IU/mL (.); QNTFERON TB1+ Ag Value 0.07 IU/mL (.); QNTFERON TB2+ Ag Value 0.22 IU/mL (.); QNTIFERON TB Positive Criteria Negative (Negative)
== END | disposition home or self-care (01) ==
LOC: LAB 15:35
PROVIDERS: PCP Internal Medicine; Visit Provider Physician Assistant
DX: L82.1 Other seborrheic keratosis (principal); L57.8 Other skin changes due to chronic exposure to nonionizing radiation; D22.5 Melanocytic nevi of trunk; L81.4 Other melanin hyperpigmentation; Z71.89 Other specified counseling; L71.8 Other rosacea; L40.0 Psoriasis vulgaris
CPT/HCPCS: 36415; 86480

== ENCOUNTER → 2024-03-01 | Outpatient (CLI) | payer OTHER, SELFPAY ==
[2024-03-01 17:52] LABS: Absolute Lymphocyte Count 2.57 X10^3/uL (0.83-4.51); Absolute Neutrophil Count 5.9 X10^3/uL (2.0-7.7); Basophil# 0.07 X10^3/uL; Basophil% 0.8 % (0-1); Eosinophil# 0.08 X10^3/uL; Eosinophils% 0.9 % (0-5); Hematocrit 45.7 % (37-47); Hemoglobin 14.5 g/dL (12.0-15.0); Lymphocyte # 2.57 X10^3/ul (0.83-4.51); Lymphocyte % 27.6 % (19-41); Mean Corp Hgb Conc 31.7 g/dL (32-36); Mean Corpuscular Hgb 32.8 pg (27.0-32.0); Mean Corpuscular Volume 103.4 fL (81-99); Mean Platelet Vol. 11.1 fl (6.2-12.0); Monocyte# 0.65 X10^3/uL; NRBC Flagged by Analyzer 0 % (0-5); Neutrophil # 5.92 X10^3/uL (2.7-7.7); Neutrophil % 63.4 % (47-70); Platelet Count 197 K/mm3 (150-450); RBC Distribution Width CV 12.3 % (11.6-14.6); RBC Distribution Width SD 47.3 fl (35.1-43.9); Red Blood Count 4.42 M/mm3 (4.2-5.4); White Blood Count 9.3 K/mm3 (4.4-11.0)
[2024-03-01 18:14] LABS: Vitamin D,25 Hydroxy 53.9 ng/mL
[2024-03-01 18:43] LABS: ALB/GLOB Ratio 1.2 RATIO (0.9-2.4); AST(SGOT) 14 U/L (15-37); Alanine Aminotransfer ALT/SGPT 27 U/L (13-56); Albumin, Serum 3.7 g/dL (3.2-5.0); Alkaline Phosphatase 55 U/L (45-117); Anion Gap 5 (5-15); BUN 25 mg/dL (7-18); BUN/Creat Ratio 26.3 RATIO (10-20); Calcium,Total 8.7 mg/dL (8.5-10.1); Chloride 107 mmol/L (98-107); Creatinine, Serum 0.95 mg/dL (0.55-1.02); EST Glomerular Filtration Rate 64 mL/min (>60); Est Glom Filt Rate - Afr Amer 78 mL/min (>60); Estradiol 30.9 pg/mL; Ferritin 287 ng/mL (8-252); Free T3 2.1 pg/mL (2.18-3.98); Globulin 3.1 g/dL (2.2-4.2); Glucose 89 mg/dL (74-106); Iron 110 ug/dL (50-170); Iron Binding Capacity,Total 290 ug/dL (250-450); PERCENT IRON SATURATION 37.9 % (15.0-55.0); Potassium 3.9 mmol/L (3.5-5.1); Protein, Total 6.8 g/dL (6.4-8.2); Sodium Level 138 mmol/L (136-145); Thyroid Stim Hormone (TSH) 0.767 uIU/mL (0.358-3.740)
[2024-03-03 04:08] LABS: DHEA Sulfate 44.6 ug/dL (29.4-220.5); PROGESTERONE 0.8 ng/mL (.)
== END | disposition home or self-care (01) ==
LOC: MTLAB 15:34
PROVIDERS: PCP Internal Medicine; Referring Provider Nurse Practitioner Women's Health; Visit Provider Nurse Practitioner Women's Health
DX: D50.8 Other iron deficiency anemias (principal); R53.81 Other malaise; E03.8 Other specified hypothyroidism; N95.1 Menopausal and female climacteric states; E55.9 Vitamin D deficiency, unspecified
CPT/HCPCS: 36415; 80053; 82306; 82627; 82670; 82728; 83540; 83550; 84144; 84403; 84443; 84481; 85025; 82626

== ENCOUNTER → 2024-03-12 | Outpatient (CLI) | payer OTHER, SELFPAY ==
--- NOTE | 2024-03-12 14:55 | BI_ITS ---
MAMMOGRAPHY - BILATERAL SCREENING REASON FOR EXAM: Female, 58 years old. Routine annual screening examination. PERTINENT HISTORY: Sister with breast cancer. TECHNIQUE: Digital bilateral breast azalia (3D mammographic acquisition) in the CC and MLO projections. 2-D mediolateral oblique (MLO) and craniocaudad (CC) views of both breasts were obtained. CAD: Full Field Digital Mammography with Computer Added Detection was performed. COMPARISON: Comparison is made with prior study March 10, 2023 and January 28, 2022. FINDINGS: Breast Composition: The breasts are heterogeneously dense, which may obscure small masses. There are no dominant masses or suspicious calcifications. Stable partially calcified 1.1 cm x 0.9 cm nodule in the retroareolar region of the left breast. Stable small bilateral well-defined breast nodule suggestive of cysts. No other significant abnormalities are identified. There has been no significant change since the prior study. BI/SCRN MAMM (CAD)W/AZALIA BILAT IMPRESSION: Stable bilateral screening mammogram. Yearly follow-up mammogram recommended. (A) ASSESSMENT CATEGORY: BIRADS Category 2: Benign. A letter regarding these results will be sent to the patient by the facility within 30 days. Approximately 10% of breast cancers are not detected by mammography. A normal mammogram should not delay biopsy of a clinically suspicious abnormality. [id number] Electronically Signed: Aki Cruz MD at 15:45 EST ,
[2024-03-12 17:33] LABS: Absolute Lymphocyte Count 2.11 X10^3/uL (0.83-4.51); Absolute Neutrophil Count 4.1 X10^3/uL (2.0-7.7); Basophil# 0.04 X10^3/uL; Basophil% 0.6 % (0-1); Eosinophil# 0.09 X10^3/uL; Eosinophils% 1.3 % (0-5); Hematocrit 44.3 % (37-47); Hemoglobin 14.5 g/dL (12.0-15.0); Lymphocyte # 2.11 X10^3/ul (0.83-4.51); Lymphocyte % 30.9 % (19-41); Mean Corp Hgb Conc 32.7 g/dL (32-36); Mean Corpuscular Hgb 33.3 pg (27.0-32.0); Mean Corpuscular Volume 101.6 fL (81-99); Monocyte# 0.52 X10^3/uL; Monocyte% 7.6 % (0-10); NRBC Flagged by Analyzer 0 % (0-5); Neutrophil # 4.07 X10^3/uL (2.7-7.7); Neutrophil % 59.6 % (47-70); Platelet Count 178 K/mm3 (150-450); RBC Distribution Width CV 12.2 % (11.6-14.6); RBC Distribution Width SD 46.1 fl (35.1-43.9); Red Blood Count 4.36 M/mm3 (4.2-5.4); White Blood Count 6.8 K/mm3 (4.4-11.0)
[2024-03-12 18:58] LABS: Vitamin B12 808 pg/mL (211-911)
[2024-03-12 19:09] LABS: Free T3 2.4 pg/mL (2.18-3.98); T4 Total, Thyroxin 7.1 ug/dL (4.8-13.9)
[2024-03-13 13:18] LABS: T4 Free Direct 0.72 ng/dL (0.76-1.46)
== END | disposition home or self-care (01) ==
PROVIDERS: PCP Internal Medicine; Referring Provider Nurse Practitioner Family; Visit Provider Nurse Practitioner Family
DX: Z12.31 Encounter for screening mammogram for malignant neoplasm of breast (principal); R94.6 Abnormal results of thyroid function studies; D53.9 Nutritional anemia, unspecified
CPT/HCPCS: 36415; 77063; 77067; 82607; 84436; 84439; 84443; 84481; 85025

== ENCOUNTER → 2024-11-02 | Outpatient (CLI) | payer OTHER, SELFPAY ==
[2024-11-02 18:22] LABS: Free T3 2.3 pg/mL (2.18-3.98); Vitamin D,25 Hydroxy 58.4 ng/mL (30-100)
[2024-11-05 12:52] LABS: PROGESTERONE 0.7 ng/mL (.)
== END | disposition home or self-care (01) ==
LOC: MTLAB 14:18
PROVIDERS: PCP Internal Medicine; Referring Provider Nurse Practitioner Women's Health; Visit Provider Nurse Practitioner Women's Health
DX: E03.8 Other specified hypothyroidism (principal); E55.9 Vitamin D deficiency, unspecified; N95.1 Menopausal and female climacteric states; R53.81 Other malaise
CPT/HCPCS: 36415; 82306; 82627; 82670; 84144; 84403; 84443; 84481; 82626

== ENCOUNTER → 2025-03-01 | Outpatient (CLI) | payer OTHER, SELFPAY ==
[2025-03-01 18:19] LABS: Free T3 2.8 pg/mL (2.18-3.98); Vitamin D,25 Hydroxy 74.8 ng/mL (30-100)
[2025-03-03 06:37] LABS: PROGESTERONE 0.6 ng/mL (.)
== END | disposition home or self-care (01) ==
LOC: MTLAB 15:14
PROVIDERS: PCP Internal Medicine; Referring Provider Nurse Practitioner Women's Health; Visit Provider Nurse Practitioner Women's Health
DX: E03.8 Other specified hypothyroidism (principal); E28.8 Other ovarian dysfunction; R53.81 Other malaise; E55.9 Vitamin D deficiency, unspecified; R68.82 Decreased libido
CPT/HCPCS: 36415; 82306; 82627; 82670; 84144; 84403; 84439; 84443; 84481; 82626

== ENCOUNTER → 2025-03-26 | Outpatient (CLI) | payer OTHER, SELFPAY ==
--- NOTE | 2025-03-26 14:42 | BI_ITS ---
EXAM: SCRN MAMM (CAD)W/AZALIA BILAT DATE: 03/26/2025 CLINICAL HISTORY: F, Age 59 y/o , SCREENING TECHNIQUE: Procedure Code: [id number] Modality: MG Procedure: SCRN MAMM (CAD)W/AZALIA BILAT COMPARISON: Prior exam(s) dating back to 08/22/2020 were compared FINDINGS: TISSUE DENSITY: The breasts are heterogeneously dense, which may obscure small masses. Bilateral Breast Mammographic Findings: Right breast: There is new mass in the upper-outer right breast measuring 1.4 cm. Left breast: No significant masses, calcifications or other abnormalities are identified. BI/SCRN MAMM (CAD)W/AZALIA BILAT IMPRESSION: New 1.4 cm mass in the upper-outer right breast measuring 1.4 cm. Recommend renee gnostic right breast ultrasound scanning the right breast from 9:00 to 12:00 about 5 cm from the nipple for further assessment. No mammographic evidence of malignancy in the left breast. OVERALL FINAL ASSESSMENT BI-RADS 0: INCOMPLETE - NEED ADDITIONAL IMAGING EVALUATION. RECOMMENDATION: Additional Views obtained/call backs Additional Recommendation none A letter with findings and recommendations will be mailed to the patient. Reading Location: [id number]
== END | disposition home or self-care (01) ==
LOC: OPBI 14:39
PROVIDERS: PCP Internal Medicine; Referring Provider Specialist; Visit Provider Specialist
DX: Z12.31 Encounter for screening mammogram for malignant neoplasm of breast (principal)
CPT/HCPCS: 77063; 77067